=== PATIENT | female | born 1940 | race Two or more races ===

== ENCOUNTER 2022-04-27 19:55 | Inpatient (IN) | payer BC, MEDICAID ==
[~2022-04-27] VITALS: Ht 154.9 cm; Wt 56.7 kg
--- NOTE | 2022-04-27 20:50 | NUR ---
TO ER BED 11. [facility]IBFAM [facility] C/O SYNCOPE AT 8AM +KO +HEAD TRAUMA. PT STATES FEELING "HOT AND SWEATY" BEFORE SYNCOPAL EPISODE. PT IS ALERT AND ORIENTED. AMBULATORY WITH STEADY GAIT. CONNECTED TO MONITOR. AWAITING MD SOLIS
--- NOTE | 2022-04-27 21:35 | NUR ---
PT TAKEN TO CT VIA DIALLO
--- NOTE | 2022-04-27 22:26 | NUR ---
RAC #18G S/L BLOOD COLLECTED AND SENT TO LAB
--- NOTE | 2022-04-27 22:26 | NUR ---
PT SEEN BY DR. RADER
[2022-04-27 22:30] LABS: BASOPHILS % (AUTO) 0.4 % (0.0-2.0); EOSINOPHILS % (AUTO) 0.5 % (0.0-6.0); HEMATOCRIT 38 % (33-45); HEMOGLOBIN 12.8 g/dL (11.5-14.8); LYMPHOCYTES # (AUTO) 1.2 K/uL (0.8-4.8); LYMPHOCYTES % (AUTO) 19.4 % (20.0-44.0); MEAN CORPUSCULAR HGB CONC 34 g/dl (31.0-36.0); MEAN CORPUSCULAR VOLUME 89 fL (82-100); MONOCYTES # (AUTO) 0.9 K/uL (0.1-1.30); NEUTROPHILS # (AUTO) 4.1 K/uL (1.8-8.9); NEUTROPHILS % (AUTO) 65.7 % (43.0-81.0); PLATELET COUNT (AUTO) 314 K/uL (150-450); RED BLOOD CELL COUNT(AUTO) 4.24 MIL/uL (4.0-5.2); WHITE BLOOD COUNT (AUTO) 6.3 K/uL (4.3-11.0)
--- NOTE | 2022-04-27 22:38 | NUR ---
PT TAKEN TO CT VIA DIALLO
[2022-04-27 22:49] LABS: ALANINE AMINOTRANSFERASE 18 U/L (12-78); ALBUMIN 3.9 g/dL (3.4-5.0); ALKALINE PHOSPHATASE 120 U/L (46-116); ASPARTATE AMINOTRANSFERASE 15 U/L (15-37); BILIRUBIN,DIRECT 0.2 mg/dL (0.0-0.2); BILIRUBIN,TOTAL 0.7 mg/dL (0.2-1.0); CALCIUM, SERUM 8.9 mg/dL (8.5-10.1); CARBON DIOXIDE 27 mmol/L (21-32); CHLORIDE 91 mmol/L (98-107); CREATININE 0.6 mg/dL (0.6-1.3); POTASSIUM 3.8 mmol/L (3.5-5.1); SODIUM SERUM 125 mmol/L (136-145); TOTAL PROTEIN, SERUM 7.7 g/dL (6.4-8.2); UREA NITROGEN, BLOOD 7 mg/dL (7-18)
[2022-04-27 22:55] LABS: GLUCOSE 118 mg/dL (74-106)
[2022-04-27] MEDS ORDERED: MORPHINE SULFATE INJ 2 MG/ML DISP.SYRIN IV ONE (23:00)
[2022-04-27] MEDS ORDERED: ONDANSETRON HCL/PF 4 MG/2 ML VIAL IV ONE (23:00)
[2022-04-27] MEDS ORDERED: MORPHINE SULFATE INJ 2 MG/ML DISP.SYRIN ONE (23:04)
[2022-04-27] MEDS ORDERED: ONDANSETRON HCL/PF 4 MG/2 ML VIAL ONE (23:04)
--- NOTE | 2022-04-27 23:50 | NUR ---
COVID POSITIVE; DR. DIOR WASHINGTON AWARE. CONTACT DROPLET ISOLATION IN PLACE.
[2022-04-27 23:53] LABS: BILIRUBIN,URINE NEGATIVE (NEGATIVE); COLOR,URINE YELLOW (YELLOW); LEUKOCYTE ESTERASE ,URINE SMALL (NEGATIVE); NITRITE, URINE NEGATIVE (NEGATIVE); PH,URINE 6.5 (5.0-8.0); PROTEIN,URINE NEGATIVE (NEGATIVE); UGLUCOSE 100 MG/DL mg/dL (NEGATIVE); UROBILINOGEN,URINE 0.2 EU/dL (0.2)
[2022-04-27 23:57] LABS: BACTERIA,URINE Rare /HPF (None Seen); RBC,URINE 0-2 /HPF (0-2); SQUAMOUS EPITHELIAL CELL,UR Moderate /HPF (None Seen); WBC,URINE 0-2 /HPF (0-3)
--- NOTE | 2022-04-28 00:36 | NUR ---
[facility] PAGED
--- NOTE | 2022-04-28 01:10 | NUR ---
UPDATED GAVIN [phone] REGARDING PT'S ADMISSION & COVID VIA VOICE MESSAGE.
--- NOTE | 2022-04-28 01:43 | NUR ---
PT AMBULATORY TO RESTOOM WITH SUPERVISION. ADLS DONE.
--- NOTE | 2022-04-28 01:45 | NUR ---
ASSIGNED TO 103
[2022-04-28] MEDS ORDERED: AMLO-212 PO (02:07)
[2022-04-28] MEDS ORDERED: IRBE1TAB41 PO (02:10)
[2022-04-28] MEDS ORDERED: LEVO50TA8 PO (02:10)
--- NOTE | 2022-04-28 03:24 | NUR ---
REPORT GIVEN TO CHARLEY VARELA CHARGE NURSE FOR SHABBIR.
--- NOTE | 2022-04-28 03:25 | NUR ---
0325 Report received from ER nurse Chris for transfer of care with questions answered.
--- NOTE | 2022-04-28 03:35 | NUR ---
0335 Admitted from ER 82 year old female via gurney with Dx Syncope, Covid +. Patient awake alert oriented x4. Kinyarwanda speaking only. On room air with no complain of shortness of breath. No cough and denies chest pain when asked. Able to ambulate to bed with supervision. Connected to traffic monitor specialist. NSR in the 80s. No ectopies. Admission care done. Skin assessment done. No skin breakdown noted. Placed on strict isolation for covid. All necessary precaution observed. Oriented to room. Call light placed within reach and instructed patient to call for assistance.
--- NOTE | 2022-04-28 03:37 | NUR ---
PT TRANSFERRED TO [facility] VIA ACLS PROTOCOL. ALL BELONGINGS WITH PT. VSS.
--- NOTE | 2022-04-28 03:40 | NUR ---
8921 OMEGA Tesfaye notified of patient's admission to unit. Awaiting orders.
[2022-04-28 03:53] VITALS: BP 149/60
[2022-04-28] MEDS ORDERED: ZOLPIDEM TARTRATE 5 MG TABLET PO PRN (04:30)
[2022-04-28] MEDS ORDERED: ACETAMINOPHEN 325 MG TABLET PO PRN (04:30)
[2022-04-28] MEDS ORDERED: MAGNESIUM HYDROXIDE 30 ML UDC PO PRN (04:30)
[2022-04-28] MEDS ORDERED: ONDANSETRON HCL/PF 4 MG/2 ML VIAL IVP PRN (04:30)
[2022-04-28] MEDS: IV NS 0.9% 1,000 ML IV PRN ×2 (04:55→18:21)
[2022-04-28] MEDS: ENOXAPARIN SODIUM 40 MG/0.4 ML DISP.SYRIN SQ SCH (04:55)
--- NOTE | 2022-04-28 06:51 | NUR ---
RN NOTES PATIENT REMAINS STABLE NO SIGNIFICANT CHANGES IN HEALTH CONDITION. PATIENT A/O X4 ABLE TO MAKE NEEDS KNOWN. ALL DUE MEDS GIVEN ORDERED. WITH R AC # 20 PATENT CONNECTED TO CONTINUOS IVF PNS 75CC/HR. ON DROPLET ISOLATION FOR COVID DROPLET PRECAUTION DONE. ALL SAFETY MEASURES IN PLACE AT ALL TIMES. HOB ELEVATED. CALL LIGHT WITHIN REACH. WILL ENDORSED TO MORNING NURSE FOR SHABBIR
--- NOTE | 2022-04-28 07:10 | NUR ---
RN open note Patient is alert , oriented times 3 , ambulatory , urine and bowel continent , skin intact .Patient is in bed , on room air , breathing non labored no sighs of distress, RAC 18 g , IV access NS running at 75 ml/hr. Bed is at lowest position , bed side rails are up , call light within reach .
[2022-04-28 08:00] VITALS: BP 127/59
[2022-04-28] MEDS: LEVOTHYROXINE SODIUM 50 MCG TABLET PO SCH (09:08)
[2022-04-28] MEDS: AMLODIPINE BESYLATE 5 MG TABLET PO SCH (09:08)
[2022-04-28 09:39] LABS: POTASSIUM 3.5 mmol/L (3.5-5.1)
[2022-04-28 09:58] LABS: ALBUMIN 3.2 g/dL (3.4-5.0); BILIRUBIN,TOTAL 0.7 mg/dL (0.2-1.0); CALCIUM, SERUM 8.1 mg/dL (8.5-10.1); CREATININE 0.7 mg/dL (0.6-1.3); TOTAL PROTEIN, SERUM 6.5 g/dL (6.4-8.2)
[2022-04-28] MEDS: LOSARTAN POTASSIUM 50 MG TABLET PO SCH (10:42)
[2022-04-28] MEDS: HYDROCHLOROTHIAZIDE 25 MG TABLET PO SCH (10:43)
[2022-04-28 12:00] VITALS: BP 152/50
[2022-04-28 16:00] VITALS: BP 152/50
--- NOTE | 2022-04-28 18:32 | NUR ---
RN closing note Patient is alert , oriented times 3 , ambulatory , moderate assistance with ADLs, patient is in bed on room air , breathing non labored , no sighs of distress.Patient ambulates to the restroom today had 5 times of urination with clear yellow urine , one bowel movement soft brown stool. Patient has IV access of the RAC 18 g with NS running at 75 ml/hr, no open wounds .All meds were administered , all needs are met . Bed ios at lowest position , bed side rails are up , call light within reach.
--- NOTE | 2022-04-28 19:30 | NUR ---
CURTAIN DRIER OPENING NOTE RECEIVED PT IN BED, AWAKE. A/O X 4, MAORI SPEAKING ONLY. CURRENTLY ON RA, TOLERATING WELL. NO S/SX OF ACUTE DISTRESS NOTED AT THIS TIME. IV ACCESS NOTED IN RAC #18g, PATENT AND INTACT, INFUSING NS AT 75 CC/HR. KEPT HOB ELEVATED. ALL SAFETY MEASURES IN PLACE: BED LOCKED IN LOWEST POSITION, BED ALARM ON. CALL LIGHT WITHIN REACH. WILL CONTINUE TO MONITOR PT.
[2022-04-28 20:00] VITALS: BP 123/49
--- NOTE | 2022-04-28 22:30 | NUR ---
RN NOTE PT IS SLEEPING SOUNDLY. NO S/SX OF ACUTE DISTRESS, NO SOB. WILL CONTINUE TO MONITOR.
[2022-04-29] VITALS: BP 133/46
--- NOTE | 2022-04-29 01:20 | NUR ---
RN NOTE PT HAS A TEMP OF 100.6. PT SAID NO PAIN, SHE IS JUST FEELING COLD. GAVE TYLENOL PRN ORDERED. WILL CONTINUE TO MONITOR PT.
--- NOTE | 2022-04-29 02:25 | NUR ---
RN NOTE PT TEMP WENT DOWN TO 99.2, SLEEPING COMFORTABLY. NO SIGNS ACUTE DISTRESS NOTED. NO SOB. NO PAIN. WILL CONTINUE TO MONITOR CLOSELY
[2022-04-29 04:00] VITALS: BP 104/44
--- NOTE | 2022-04-29 05:53 | NUR ---
RN NOTE AM/PM CARE DONE. KEPT PT CLEAN AND DRY. TURNED AND REPOSITIONED.
--- NOTE | 2022-04-29 06:15 | NUR ---
SHRINK PIT SUPERVISOR CLOSING NOTE PT REMAINED STABLE THE WHOLE NIGHT. PT IS AFEBRILE. NO SOB, NO PAIN, NO ACUTE DISTRESS. WILL ENDORSE TO AM SHIFT NURSE FOR SHABBIR.
[2022-04-29 07:02] LABS: BASOPHILS % (AUTO) 0.4 % (0.0-2.0); HEMATOCRIT 34 % (33-45); HEMOGLOBIN 11.4 g/dL (11.5-14.8); LYMPHOCYTES # (AUTO) 0.9 K/uL (0.8-4.8); MEAN CORPUSCULAR HGB CONC 34 g/dl (31.0-36.0); MEAN CORPUSCULAR VOLUME 91 fL (82-100); MONOCYTES # (AUTO) 0.7 K/uL (0.1-1.30); NEUTROPHILS # (AUTO) 1.9 K/uL (1.8-8.9); NEUTROPHILS % (AUTO) 51.6 % (43.0-81.0); PLATELET COUNT (AUTO) 244 K/uL (150-450); RED BLOOD CELL COUNT(AUTO) 3.75 MIL/uL (4.0-5.2); WHITE BLOOD COUNT (AUTO) 3.7 K/uL (4.3-11.0)
[2022-04-29 07:14] LABS: CALCIUM, SERUM 8.2 mg/dL (8.5-10.1); CARBON DIOXIDE 28 mmol/L (21-32); CHLORIDE 99 mmol/L (98-107); CREATININE 0.6 mg/dL (0.6-1.3); GLUCOSE 89 mg/dL (74-106); PHOSPHORUS 3.8 mg/dL (2.5-4.9); SODIUM SERUM 131 mmol/L (136-145); UREA NITROGEN, BLOOD 11 mg/dL (7-18)
--- NOTE | 2022-04-29 07:33 | NUR ---
REGISTERED NURSE SUPERVISOR OPENING NOTE RECEIVED PT IN BED, ASLEEP. CURRENTLY ON RA, TOLERATING WELL. NO S/SX OF ACUTE DISTRESS NOTED AT THIS TIME. IV ACCESS NOTED IN RAC #18G, PATENT AND INTACT, INFUSING NS AT 75 CC/HR. KEPT HOB ELEVATED. ALL SAFETY MEASURES IN PLACE: BED LOCKED IN LOWEST POSITION, BED ALARM ON. CALL LIGHT WITHIN REACH. WILL CONTINUE PLAN OF CARE.
[2022-04-29 08:00] VITALS: BP 120/71
[2022-04-29] MEDS: IV NS 0.9% 1,000 ML IV PRN ×2 (08:00→22:59)
[2022-04-29 08:30] LABS: CHOLESTEROL 144 mg/dL (<200); HDL CHOLESTEROL 63 mg/dL (40-60); LDL 71 mg/dL (0-99); TRIGLYCERIDES 33 mg/dL (30-150)
[2022-04-29] MEDS: LOSARTAN POTASSIUM 50 MG TABLET PO SCH (09:22)
[2022-04-29] MEDS: LEVOTHYROXINE SODIUM 50 MCG TABLET PO SCH (09:22)
[2022-04-29] MEDS: AMLODIPINE BESYLATE 5 MG TABLET PO SCH (09:23)
[2022-04-29] MEDS: HYDROCHLOROTHIAZIDE 25 MG TABLET PO SCH (09:24)
[2022-04-29] MEDS: ENOXAPARIN SODIUM 40 MG/0.4 ML DISP.SYRIN SQ SCH (09:29)
[2022-04-29 11:28] LABS: EOSINOPHILS % (MANUAL) 2 % (0-4); LYMPHOCYTES % (MANUAL) 30 % (16-48); MONOCYTES % (MANUAL) 13 % (0-11.0); NEUTROPHILS % (MANUAL) 55 (42-76)
[2022-04-29 12:00] VITALS: BP 117/52
[2022-04-29 16:00] VITALS: BP 128/56
--- NOTE | 2022-04-29 19:01 | NUR ---
COMPLAINT CLERK CLOSING NOTE PT IN BED, AWAKE. A/OX4, CURRENTLY ON RA, TOLERATING WELL. NO S/SX OF ACUTE DISTRESS NOTED AT THIS TIME. IV ACCESS NOTED IN RAC #18G, PATENT AND INTACT, INFUSING NS AT 75 CC/HR. KEPT HOB ELEVATED. ALL SAFETY MEASURES IN PLACE: BED LOCKED IN LOWEST POSITION, BED ALARM ON. CALL LIGHT WITHIN REACH. WILL ENDORSE TO NEXT NURSE ON DUTY FOR CONTINUITY OF CARE.
--- NOTE | 2022-04-29 19:10 | NUR ---
METAL SPRAYER OPENING NOTE RECEIVED PT IN BED, AWAKE. A/O X 4, KYRGYZ SPEAKING ONLY. CURRENTLY ON RA, TOLERATING WELL. NO S/SX OF ACUTE DISTRESS NOTED AT THIS TIME. IV ACCESS NOTED IN RAC #18g, PATENT AND INTACT, INFUSING NS AT 75 CC/HR. KEPT HOB ELEVATED. ALL SAFETY MEASURES IN PLACE: BED LOCKED IN LOWEST POSITION, BED ALARM ON. CALL LIGHT WITHIN REACH. WILL CONTINUE TO MONITOR PT.
[2022-04-29 20:00] VITALS: BP 142/58
[2022-04-30] VITALS: BP 142/58
[2022-04-30 08:00] VITALS: BP 152/57
[2022-04-30] MEDS: LOSARTAN POTASSIUM 50 MG TABLET PO SCH (08:48)
[2022-04-30] MEDS: AMLODIPINE BESYLATE 5 MG TABLET PO SCH (08:48)
[2022-04-30] MEDS: LEVOTHYROXINE SODIUM 50 MCG TABLET PO SCH (08:48)
[2022-04-30 08:49] VITALS: BP 152/57
[2022-04-30] MEDS: HYDROCHLOROTHIAZIDE 25 MG TABLET PO SCH (08:49)
[2022-04-30] MEDS: ENOXAPARIN SODIUM 40 MG/0.4 ML DISP.SYRIN SQ SCH (08:49)
[2022-04-30 11:16] LABS: CALCIUM, SERUM 8.3 mg/dL (8.5-10.1); CREATININE 0.6 mg/dL (0.6-1.3); POTASSIUM 3.5 mmol/L (3.5-5.1)
[2022-04-30 11:20] LABS: ALBUMIN 3.1 g/dL (3.4-5.0); BILIRUBIN,TOTAL 0.4 mg/dL (0.2-1.0); TOTAL PROTEIN, SERUM 6.6 g/dL (6.4-8.2)
--- NOTE | 2022-04-30 13:45 | NUR ---
RN CLOSING NOTE PATIENT DISCHARGED HOME. ID BAND AND IV SITE REMOVED.
== END 2022-04-30 13:47 | disposition home or self-care (01) | DRG 422 ==
LOC: ER 20:02 → TELE1 04-28 01:55 → MEDSG1 04-30 01:21
PROVIDERS: ADMIT Internal Medicine; ATTEND Internal Medicine
DX: E86.0 Dehydration (principal); U07.1 COVID-19; S09.90XA Unspecified injury of head, initial encounter; E87.1 Hypo-osmolality and hyponatremia; E03.9 Hypothyroidism, unspecified; I10 Essential (primary) hypertension; Z20.822 Contact with and (suspected) exposure to COVID-19; W18.30XA Fall on same level, unspecified, initial encounter; Y92.000 Kitchen of unspecified non-institutional (private) residence as the place of occurrence of the external cause; R73.9 Hyperglycemia, unspecified; J98.8 Other specified respiratory disorders; R78.89 Finding of other specified substances, not normally found in blood
CPT/HCPCS: 36415; 70450-TC; 71045-TC; 72125-TC; 80048-TC; 80053-TC; 80061-TC; 80076-TC; 81001; 82533; 83735-TC; 84100-TC; 84439-TC; 84443-TC; 84484-TC; 84550-TC; 85025-TC; 85378-TC; 86140-TC; 87081-TC; 87086-TC; 93307-TC; C9803; G0378; J1650; J2270; J2405; J7030

== ENCOUNTER 2022-05-26 10:18 | Inpatient (IN) | payer MEDICAID ==
[~2022-05-26] VITALS: Ht 147.3 cm; Wt 58.5 kg
[~2022-05-26 10:18] MED LIST: AMLO-212 PO; IRBE1TAB41 PO; LEVO50TA8 PO
--- NOTE | 2022-05-26 10:48 | NUR ---
Patient came ini to the er c/o dizzziness, near syncopal episode. On room air, breathing evenly and unlabored. Connected to the cardiac monitoring and pulse ox. Blood drawned and sent to lab. Kept comfortable, will continue to monitor accordingly.
[2022-05-26 10:50] LABS: BASOPHILS % (AUTO) 0.4 % (0.0-2.0); EOSINOPHILS % (AUTO) 0.9 % (0.0-6.0); HEMATOCRIT 36 % (33-45); HEMOGLOBIN 12.3 g/dL (11.5-14.8); LYMPHOCYTES # (AUTO) 1.1 K/uL (0.8-4.8); LYMPHOCYTES % (AUTO) 19.6 % (20.0-44.0); MEAN CORPUSCULAR HGB CONC 34 g/dl (31.0-36.0); MEAN CORPUSCULAR VOLUME 90 fL (82-100); MONOCYTES # (AUTO) 0.6 K/uL (0.1-1.30); MONOCYTES % (AUTO) 11.2 % (2.0-12.0); NEUTROPHILS # (AUTO) 3.7 K/uL (1.8-8.9); NEUTROPHILS % (AUTO) 67.9 % (43.0-81.0); PLATELET COUNT (AUTO) 333 K/uL (150-450); WHITE BLOOD COUNT (AUTO) 5.4 K/uL (4.3-11.0)
[2022-05-26 11:08] LABS: ALBUMIN 3.7 g/dL (3.4-5.0); BILIRUBIN,DIRECT 0.2 mg/dL (0.0-0.2); BILIRUBIN,TOTAL 0.8 mg/dL (0.2-1.0); CALCIUM, SERUM 8.2 mg/dL (8.5-10.1); CREATININE 0.8 mg/dL (0.6-1.3); POTASSIUM 3.6 mmol/L (3.5-5.1); TOTAL PROTEIN, SERUM 7.2 g/dL (6.4-8.2)
--- NOTE | 2022-05-26 11:26 | NUR ---
CALLED DR. KEELY SAXENA [phone] CELL [phone]
--- NOTE | 2022-05-26 11:45 | NUR ---
covid swab collected and sent to lab.
[2022-05-26] MEDS ORDERED: IV NS 0.9% 1,000 ML IV ONE (12:00)
--- NOTE | 2022-05-26 12:43 | NUR ---
[facility] CALLED NAVIGATION TEACHER PAGED.
[2022-05-26 12:50] LABS: BILIRUBIN,URINE NEGATIVE (NEGATIVE); COLOR,URINE YELLOW (YELLOW); LEUKOCYTE ESTERASE ,URINE NEGATIVE (NEGATIVE); NITRITE, URINE NEGATIVE (NEGATIVE); PROTEIN,URINE NEGATIVE (NEGATIVE); UGLUCOSE 500 MG/DL mg/dL (NEGATIVE); UROBILINOGEN,URINE 0.2 EU/dL (0.2)
[2022-05-26 13:20] LABS: BACTERIA,URINE Few /HPF (None Seen); RBC,URINE 0-2 /HPF (0-2); SQUAMOUS EPITHELIAL CELL,UR Few /HPF (None Seen); WBC,URINE 0-2 /HPF (0-3)
--- NOTE | 2022-05-26 13:49 | NUR ---
report given to Elise SOLARES to continue care.
[2022-05-26] MEDS ORDERED: Z GUARD REMEDY 4 OZ OINT TP PRN (14:00)
[2022-05-26] MEDS ORDERED: MAG HYDROX/AL HYDROX/SIMETH 30 ML UDC PO PRN (14:00)
[2022-05-26] MEDS ORDERED: *INSULIN REGULAR(HUMULIN R)HUM 100 UNIT/ML VIAL SQ PRN (14:00)
[2022-05-26] MEDS ORDERED: ACETAMINOPHEN 325 MG TABLET PO PRN (14:00)
[2022-05-26] MEDS ORDERED: ONDANSETRON HCL/PF 4 MG/2 ML VIAL IVP PRN (14:00)
[2022-05-26] MEDS ORDERED: DEXTROSE 50%-WATER 50 ML DISP.SYRIN IV PRN (14:00)
[2022-05-26] MEDS ORDERED: INSULIN REGULAR, HUMAN 100 UNIT/ML 3 ML VIAL SQ PRN (14:00)
[2022-05-26] MEDS ORDERED: MAGNESIUM HYDROXIDE 30 ML UDC PO PRN (14:00)
--- NOTE | 2022-05-26 14:07 | NUR ---
wheeled patient via gurney accompanied by RN and emt in no distress, RN assigned at bedside to assume care.
--- NOTE | 2022-05-26 14:30 | NUR ---
HOME MANAGEMENT SUPERVISORBURR PICKER NOTE: RECEIVED PT. IN DI[facility]O FROM ER AT 1400. REPORT GIVEN BY GIFT SHOP MANAGER GENESIS TO HEATING FIXTURE TENDER RAFAELA. PT. IS A/OX4, AWAKE, INDONESIAN-SPEAKING. UTILIZED INDONESIAN-SPEAKING STAFF FOOD EXPEDITOR. NO COMPLAINTS OF PAIN AT THIS TIME. PT. ON RA. NO S/S OF RESPIRATORY DISTRESS. PT. ON TELE MONITOR THAT READS NSR @ 75 BPM. OTHER VS: T - 97.9 F; BP - 155/68; R - 18; 02 SAT - 100%. PT. VOIDING WELL AND AMBULATES INDEPENDENTLY. ADVISED PT. TO USE CALL LIGHT BEFORE GETTING OUT OF BED TO PREVENT FALL. PT. CONSTIPATED, LBM TODAY, SMALL AMOUNT. IV SITE ON R AC #18G, PATENT AND FLUSHING WELL, NO S/S OF INFILTRATION, SALINE LOCKED AT THIS TIME. PT. HAS SMALL KNEE ABRASION THAT IS DRY. PHOTO TAKEN. SKIN INTACT OTHERWISE. SAFETY MEASURES IN PLACE: BED IN LOWEST AND LOCKED POSITION, HOB ELEVATED, SIDE RAILS UP X3; BED ALARM ON, CALL LIGHT & BELONGINGS WITHIN EASY REACH. WILL CONTINUE TO MONITOR PT. FOR ANY CHANGES.
[2022-05-26] MEDS: IV NS 0.9% 1,000 ML IV PRN (15:12)
[2022-05-26] MEDS: BLOOD SUGAR DIAGNOSTIC 1 EACH STRIP VI SCH ×2 (18:52→21:44)
--- NOTE | 2022-05-26 19:00 | NUR ---
RN NOTE RECEIVED PATIENT IN BED, AAO X 4, KYRGYZ SPEAKING. IN NO ACUTE DISTRESS, BREATHING UNLABORED, SATURATION AT 95% ON ROOM AIR, SR ON THE MONITOR, HR IS 72. IV LINE AT RAC 18G PATENT AND FLUSHING WELL, NO S/S OF INFECTION OR INFILTRATION, WITH NS INFUSING AT 75 ML/HR. PATIENT IS CONTINENT AND AMBULATORY WITH SB ASSIST. SAFETY MEASURES IN PLACE, BED IS LOCKED AND AT LOWEST POSITION. CALL LIGHT WITHIN REACH OF PATIENT. WILL CONT TO MONITOR AND REASSESS FOR ANY CHANGES.
--- NOTE | 2022-05-26 19:20 | NUR ---
PARAEDUCATOR CLOSING NOTE: PT. REMAINS IN BED, AWAKE, A/OX4. DANISH-SPEAKING. UTILIZED DANISH-SPEAKING STAFF MAT MAKER. NO COMPLAINTS OF PAIN AT THIS TIME. PT. ON RA. BREATHING EVEN AND UNLABORED. PT. ON TELE MONITOR THAT READS NSR @ 74 BPM. PT. AMBULATES INDEPENDENTLY WITH STANDBY ASSIST. REINFORCED USE OF CALL LIGHT BEFORE GETTING OUT OF BED TO PREVENT FALL. IV SITE ON R AC #18G, PATENT AND FLUSHING WELL, NO S/S OF INFILTRATION, WITH NS RUNNING @ 75ML/HR. SAFETY MEASURES MAINTAINED: BED IN LOWEST AND LOCKED POSITION, HOB ELEVATED, SIDE RAILS UP X3; BED ALARM ON, CALL LIGHT & BELONGINGS WITHIN EASY REACH. WILL ENDORSE CONTINUITY OF CARE TO BAKER BISCUIT RN.
[2022-05-26 20:00] VITALS: BP 140/61
[2022-05-27] VITALS: BP 139/57
--- NOTE | 2022-05-27 02:05 | NUR ---
RN NOTE PATIENT ASLEEP, VS STABLE. SAFETY MEASURES IN PLACE. REPORT GIVEN TO ISABELLA SOLARES FOR CONTINUATION OF CARE.
--- NOTE | 2022-05-27 02:10 | NUR ---
REINSURANCE CLERK NOTE RECEIVED PATIENT IN BED, ASLEEP, EASILY AROUSED; A/O X4. PALAUAN SPEAKING. NOT IN ANY FORM OF RESPIRATORY DISTRESS. BREATHING EVENLY AND NONLABORED. ON ROOM AIR, TOLERATING WELL. ON TELEMETRY MONITORING WITH READING OF SR HR-73 BPM. WITH IV ACCESS ON RAC G#18; PATENT, INTACT AND FLUSHES WELL INFUSING WITH NS REGULATED @75 ML/HR. SAFETY MEASURES IMPLEMENTED: CALL LIGHT AND TABLE WITHIN REACH, SIDE RAILS UP X2, BED IN LOWEST LOCKED POSITION. WILL CONTINUE TO MONITOR
[2022-05-27 04:00] VITALS: BP 142/56
[2022-05-27] MEDS: IV NS 0.9% 1,000 ML IV PRN ×2 (05:13→20:24)
[2022-05-27 06:47] LABS: BASOPHILS % (AUTO) 0.4 % (0.0-2.0); HEMATOCRIT 34 % (33-45); HEMOGLOBIN 11.6 g/dL (11.5-14.8); LYMPHOCYTES # (AUTO) 1.2 K/uL (0.8-4.8); LYMPHOCYTES % (AUTO) 23.1 % (20.0-44.0); MEAN CORPUSCULAR HGB CONC 35 g/dl (31.0-36.0); MEAN CORPUSCULAR VOLUME 90 fL (82-100); MONOCYTES # (AUTO) 0.6 K/uL (0.1-1.30); MONOCYTES % (AUTO) 11.3 % (2.0-12.0); NEUTROPHILS # (AUTO) 3.2 K/uL (1.8-8.9); NEUTROPHILS % (AUTO) 63.2 % (43.0-81.0); PLATELET COUNT (AUTO) 298 K/uL (150-450); RED BLOOD CELL COUNT(AUTO) 3.78 MIL/uL (4.0-5.2)
--- NOTE | 2022-05-27 06:59 | NUR ---
PICK OUT HAND CLOSING NOTE PATIENT CURRENTLY RESTING IN BED; ASLEEP & EASY TO AROUSE; A/O X4. ABLE TO MAKE NEEDS KNOWN. DENIES ANY PAIN OR DISCOMFORT AT THIS TIME. CONTINUES ON ROOM AIR WITH NO S/SX OF RESPIRATORY DISTRESS. IV ACCESS ON RAC 18G INFUSING WITH NS 1L REGULATED @ 75ML/HR. SAFETY MEASURES IN PLACE. ALL NEEDS ANTICIPATED AND ATTENDED. ENDORSED TO MORNING SHIFT FOR SHABBIR.
[2022-05-27 07:18] LABS: CALCIUM, SERUM 7.9 mg/dL (8.5-10.1); CARBON DIOXIDE 27 mmol/L (21-32); CHLORIDE 98 mmol/L (98-107); CREATININE 0.5 mg/dL (0.6-1.3); GLUCOSE 89 mg/dL (74-106); MAGNESIUM 2.2 mg/dL (1.8-2.4); PHOSPHORUS 3.4 mg/dL (2.5-4.9); POTASSIUM 4.1 mmol/L (3.5-5.1); SODIUM SERUM 128 mmol/L (136-145); UREA NITROGEN, BLOOD 7 mg/dL (7-18)
--- NOTE | 2022-05-27 07:30 | NUR ---
RN OPENING NOTE PATIENT LAYING ON BED AWAKE AND ALERT A&OX4 MONGOLIAN SPEAKING. ALL VSS. SRPATIENT SATTING AT 97% ON ROOM AIR. DIET REGULAR. IV RAC #18G PATENT AND INTACT RUNNING NS 0.9% @75MLS/HR. ALL SAFETY FALL PRECAUTIONS IN PLACE BED LOCK ON BED IN LOWEST POSITION, BED ALARM ON, SIDE RAILS UP, CALL LIGHT WITHIN REACH. WILL CONTINUE TO MONITOR.
[2022-05-27] MEDS: BLOOD SUGAR DIAGNOSTIC 1 EACH STRIP VI SCH ×4 (07:51→22:11)
[2022-05-27 08:00] VITALS: BP 135/64
[2022-05-27] MEDS: LEVOTHYROXINE SODIUM 50 MCG TABLET PO SCH (09:11)
[2022-05-27] MEDS ORDERED: INSULIN REGULAR, HUMAN 100 UNIT/ML 3 ML VIAL SQ PRN (10:30)
[2022-05-27] MEDS ORDERED: DEXTROSE 50%-WATER 50 ML DISP.SYRIN IV PRN (10:30)
[2022-05-27 12:00] VITALS: BP 136/64
--- NOTE | 2022-05-27 12:23 | NUR ---
RN NOTE PATIENT'S BS 82 PATIENT WAS GIVEN SOME ORANGE JUICE AND LUNCH. WILL CONTINUE TO MONITOR.
[2022-05-27 16:00] VITALS: BP 126/59
--- NOTE | 2022-05-27 19:09 | NUR ---
RN NOTE ALL CARE ENDORSED TO FISHER DIVING NURSE. PATIENT STABLE ALL QUESTIONS ANSWERED.
--- NOTE | 2022-05-27 19:10 | NUR ---
RN opening notes Pt is sitting in bed comfortably. Pt is alert and orientedX4. On room air. No SOB. no S/S of distress noted. Pt speaks Faroese and able to make needs known. IV site at RAC# 18 is clean, intact and infusing well NS@ 75 ml/hr. Tele monitor showed Sr hr at 70. Safety precautions is maintained. bed at low position, brakes locked, side rails upX2, hob elevated, bed alarm is on and call light is within reach. Will continue to monitor.
[2022-05-27 20:00] VITALS: BP_SYST 146; BP_SYST 148; BP_SYST 160; BP_DIAS 68; BP_DIAS 72
[2022-05-27] MEDS ORDERED: *INSULIN REGULAR(HUMULIN R)HUM 100 UNIT/ML VIAL SQ PRN (22:00)
--- NOTE | 2022-05-27 22:14 | NUR ---
RN notes Pt's BS HS is 126. Held coverage per level ordered. No S/s of distress noted. Snacks is given earlier. Will continue to monitor.
[2022-05-28] VITALS: BP 128/77
[2022-05-28 04:00] VITALS: BP 142/72
[2022-05-28 06:26] LABS: BASOPHILS % (AUTO) 0.7 % (0.0-2.0); EOSINOPHILS % (AUTO) 3.5 % (0.0-6.0); HEMATOCRIT 36 % (33-45); HEMOGLOBIN 12.3 g/dL (11.5-14.8); LYMPHOCYTES # (AUTO) 1.3 K/uL (0.8-4.8); LYMPHOCYTES % (AUTO) 23.9 % (20.0-44.0); MEAN CORPUSCULAR HGB CONC 34 g/dl (31.0-36.0); MEAN CORPUSCULAR VOLUME 91 fL (82-100); MONOCYTES # (AUTO) 0.5 K/uL (0.1-1.30); NEUTROPHILS # (AUTO) 3.3 K/uL (1.8-8.9); NEUTROPHILS % (AUTO) 61.9 % (43.0-81.0); PLATELET COUNT (AUTO) 280 K/uL (150-450); RED BLOOD CELL COUNT(AUTO) 3.93 MIL/uL (4.0-5.2); WHITE BLOOD COUNT (AUTO) 5.3 K/uL (4.3-11.0)
--- NOTE | 2022-05-28 06:49 | NUR ---
RN closing notes Pt is resting in bed comfortably. Pt is alert and orientedX4. On room air. No SOB. no S/S of distress noted. VS is stable. Routine meds were given as ordered. IV site at RAC# 18 is clean, intact and infusing well NS@ 75 ml/hr. Tele monitor showed Sr hr at 64. Kept Pt clean, dry and comfortable. Safety precautions is maintained. bed at low position, brakes locked, side rails upX2, hob elevated, bed alarm is on and call light is within reach. Will endorse to am nurse for SHABBIR.
[2022-05-28 07:05] LABS: CALCIUM, SERUM 8.2 mg/dL (8.5-10.1); CARBON DIOXIDE 26 mmol/L (21-32); CHLORIDE 99 mmol/L (98-107); CREATININE 0.6 mg/dL (0.6-1.3); GLUCOSE 90 mg/dL (74-106); MAGNESIUM 2.1 mg/dL (1.8-2.4); PHOSPHORUS 3.3 mg/dL (2.5-4.9); POTASSIUM 4.1 mmol/L (3.5-5.1); SODIUM SERUM 131 mmol/L (136-145); UREA NITROGEN, BLOOD 9 mg/dL (7-18)
[2022-05-28 07:09] LABS: THYROID STIMULATING HORMONE 1.702 uIU/mL (0.358-3.74)
--- NOTE | 2022-05-28 07:30 | NUR ---
COOK HELPER OPENING NOTES RECEIVED PATIENT ON BED, AWAKE AND A/O X4. ON ROOM AIR TOLERATING WELL. NO SOB NOT. NOT IN DISTRESS. WITH NO COMPLAINTS OF PAIN OR DISCOMFORT AT THIS TIME. WITH IV ACCESS AT THE RIGHT AC G18 WITH IVF NS AT 75ML/HR INFUSING WELL. ON TELE MONITOR CURRENTLY READING SINUS RHYTHM AT 64BPM. SAFETY MEASURES IN PLACED. CALL LIGHT WITHIN REACH. BED ON LOWEST LOCKED POSITION, SIDE RAILS UP X2. WILL CONTINUE TO MONITOR.
[2022-05-28 08:00] VITALS: BP 136/53
[2022-05-28] MEDS: BLOOD SUGAR DIAGNOSTIC 1 EACH STRIP VI SCH ×2 (08:04→12:35)
[2022-05-28] MEDS: LEVOTHYROXINE SODIUM 50 MCG TABLET PO SCH (08:35)
--- NOTE | 2022-05-28 09:28 | NUR ---
hospital television rental clerk note ambulated around her room , able to go to br , no c\o dizziness
[2022-05-28 12:00] VITALS: BP 154/55
--- NOTE | 2022-05-28 13:39 | NUR ---
MOVIE EXTRA NOTES PATIENT WAS SEEN BY DR. BUCKLEY AND ORDERED PATIENT FOR DISCHARGE TO HOME. DISCHARGE INSTRUCTION AND EDUCATION PROVIDED TO PATIENT AND EXPLAINED MEDICATIONS AND PRESCRIPTIONS. PATIENT VERBALIZED UNDERSTANDING. DISCHARGE FORM AND BELONGINGS LIST SIGNED BY PATIENT. ALL BELONGINGS ACCOUNTED FOR. NAME WRIST BAND AND IV LINE REMOVED. ACCOMPANIED PATIENT TO THE LOBBY VIA WHEELCHAIR WITH SON TAMY IN STABLE CONDITION AND LEFT VIA PRIVATE CAR. CHARGE NURSE AND MD ARE AWARE OF THE DISCHARGE.
== END 2022-05-28 13:39 | disposition home or self-care (01) | DRG 422 ==
LOC: ER 10:29 → TELE1 13:15
PROVIDERS: ADMIT Internal Medicine; ATTEND Internal Medicine
DX: E86.1 Hypovolemia (principal); E86.0 Dehydration; E87.1 Hypo-osmolality and hyponatremia; Z20.822 Contact with and (suspected) exposure to COVID-19; Z86.16 Personal history of COVID-19; I10 Essential (primary) hypertension; Z79.890 Hormone replacement therapy; Z79.899 Other long term (current) drug therapy; E03.9 Hypothyroidism, unspecified; T50.905A Adverse effect of unspecified drugs, medicaments and biological substances, initial encounter; Y92.9 Unspecified place or not applicable
CPT/HCPCS: 36415; 70450-TC; 71045-TC; 80048-TC; 80076-TC; 81001; 82962-TC; 83735-TC; 84100-TC; 84439-TC; 84443-TC; 84484-TC; 85025-TC; 87081-TC; 97116-TC; 97530-TC; C9803; G0378; J1815; J7030

== ENCOUNTER 2024-05-24 23:57 | Emergency (ER) | payer MEDICAID ==
[~2024-05-24] VITALS: Ht 165.1 cm; Wt 72.6 kg
[~2024-05-24 23:57] MED LIST changes: -IRBE1TAB41 PO
[2024-05-25 01:04] LABS: BASOPHILS % (AUTO) 0.7 % (0.0-2.0); EOSINOPHILS # (AUTO) 0.2 K/uL (0.0-0.7); EOSINOPHILS % (AUTO) 3.4 % (0.0-6.0); HEMATOCRIT 39 % (33-45); HEMOGLOBIN 13.2 g/dL (11.5-14.8); LYMPHOCYTES # (AUTO) 2.1 K/uL (0.8-4.8); LYMPHOCYTES % (AUTO) 32.8 % (20.0-44.0); MEAN CORPUSCULAR HEMOGLOBIN 31 PG (26.0-33.0); MEAN CORPUSCULAR HGB CONC 34 g/dl (31.0-36.0); MEAN CORPUSCULAR VOLUME 89 fL (82-100); MONOCYTES # (AUTO) 0.6 K/uL (0.1-1.30); MONOCYTES % (AUTO) 9.6 % (2.0-12.0); NEUTROPHILS # (AUTO) 3.4 K/uL (1.8-8.9); NEUTROPHILS % (AUTO) 53.5 % (43.0-81.0); PLATELET COUNT (AUTO) 311 K/uL (150-450); RED BLOOD CELL COUNT(AUTO) 4.32 MIL/uL (4.0-5.2); RED CELL DISTRIBUTION WIDTH 13.5 % (11.5-15.0); WHITE BLOOD COUNT (AUTO) 6.3 K/uL (4.3-11.0)
[2024-05-25 01:13] LABS: CALCIUM, SERUM 8.9 mg/dL (8.5-10.1); CARBON DIOXIDE 26 mmol/L (21-32); CHLORIDE 95 mmol/L (98-107); CREATININE 0.7 mg/dL (0.6-1.3); GLUCOSE 118 mg/dL (74-106); POTASSIUM 3.7 mmol/L (3.5-5.1); SODIUM SERUM 132 mmol/L (136-145); UREA NITROGEN, BLOOD 10 mg/dL (7-18)
[2024-05-25] MEDS: IV NS 0.9% 1,000 ML BAG IV ONE (01:28)
[2024-05-25 02:30] VITALS: BP 138/60; TEMP 98.8; O2SAT 97
== END 2024-05-25 03:02 | disposition home or self-care (01) ==
LOC: ER 05-25 00:02
DX: R00.2 Palpitations (principal); I10 Essential (primary) hypertension; E87.1 Hypo-osmolality and hyponatremia; Z79.899 Other long term (current) drug therapy
CPT/HCPCS: 99285; 96360; 71045; 93005; 85025; 80048; 36415; J7030

== ENCOUNTER 2025-02-24 07:40 | Inpatient (IN) | payer MEDICAID ==
[~2025-02-24] VITALS: Ht 147.3 cm; Wt 57.6 kg
[2025-02-24] MEDS ORDERED: CEFTRIAXONE 1GM BAG (ER ONLY) 50 ML IV ONE (08:29)
[2025-02-24] MEDS: IV NS 0.9% 500 ML BAG IV ONE (08:34)
[2025-02-24] MEDS: CEFTRIAXONE 1GM BAG (ER ONLY) 50 ML IV ONE (08:35)
[2025-02-24 08:36] LABS: BASOPHILS % (AUTO) 0.4 % (0.0-2.0); EOSINOPHILS # (AUTO) 0.1 K/uL (0.0-0.7); EOSINOPHILS % (AUTO) 2.6 % (0.0-6.0); HEMATOCRIT 44 % (33-45); HEMOGLOBIN 14.5 g/dL (11.5-14.8); LYMPHOCYTES # (AUTO) 1.2 K/uL (0.8-4.8); MEAN CORPUSCULAR HEMOGLOBIN 29 PG (26.0-33.0); MEAN CORPUSCULAR HGB CONC 33 g/dl (31.0-36.0); MEAN CORPUSCULAR VOLUME 86 fL (82-100); MONOCYTES # (AUTO) 0.3 K/uL (0.1-1.30); MONOCYTES % (AUTO) 8.2 % (2.0-12.0); NEUTROPHILS # (AUTO) 2.5 K/uL (1.8-8.9); NEUTROPHILS % (AUTO) 59.8 % (43.0-81.0); PLATELET COUNT (AUTO) 323 K/uL (150-450); RED BLOOD CELL COUNT(AUTO) 5.05 MIL/uL (4.0-5.2); RED CELL DISTRIBUTION WIDTH 14.4 % (11.5-15.0); WHITE BLOOD COUNT (AUTO) 4.1 K/uL (4.3-11.0)
[2025-02-24 08:46] LABS: CARBON DIOXIDE 27 mmol/L (21-32); CHLORIDE 94 mmol/L (98-107); CREATININE 0.5 mg/dL (0.6-1.3); GLUCOSE 116 mg/dL (74-106); POTASSIUM 4.2 mmol/L (3.5-5.1); SODIUM SERUM 129 mmol/L (136-145); UREA NITROGEN, BLOOD 10 mg/dL (7-18)
[2025-02-24 08:50] LABS: INR 1.04 (0.91-1.10); PARTIAL THROMBOPLASTIN TIME 24.4 SEC (24.3-34.3)
[2025-02-24 08:52] LABS: ALANINE AMINOTRANSFERASE 16 U/L (12-78); ALBUMIN 3.9 g/dL (3.4-5.0); ALKALINE PHOSPHATASE 145 U/L (46-116); ASPARTATE AMINOTRANSFERASE 16 U/L (15-37); BILIRUBIN,DIRECT 0.2 mg/dL (0.0-0.2); BILIRUBIN,TOTAL 0.8 mg/dL (0.2-1.0); TOTAL PROTEIN, SERUM 7.6 g/dL (6.4-8.2)
[2025-02-24 08:55] LABS: LACTIC ACID 1.1 mmol/L (0.4-2.0)
[2025-02-24] MEDS: AZITHROMYCIN 500 MG in IV D5W 250 ML IV ONE (09:14)
[2025-02-24] MEDS ORDERED: FLUT10.62 IH (09:48)
[2025-02-24] MEDS ORDERED: ALBU8.5H8 IH (09:48)
[2025-02-24] MEDS ORDERED: CARV6.252 PO (09:48)
[2025-02-24] MEDS ORDERED: LOSA1TAB36 PO (09:48)
[2025-02-24] MEDS ORDERED: ALBUTEROL FS 2.5 MG/0.5 ML VIAL.NEB NEB PRN (10:00)
[2025-02-24] MEDS ORDERED: ACETAMINOPHEN 325 MG TABLET PO PRN (10:00)
[2025-02-24] MEDS ORDERED: MAGNESIUM HYDROXIDE 30 ML UDC PO PRN (10:00)
[2025-02-24] MEDS ORDERED: Z GUARD REMEDY 4 OZ OINT TP PRN (10:00)
[2025-02-24] MEDS ORDERED: ONDANSETRON HCL/PF 4 MG/2 ML VIAL IVP PRN (10:00)
[2025-02-24] MEDS ORDERED: MAG HYDROX/AL HYDROX/SIMETH 30 ML UDC PO PRN (10:00)
[2025-02-24 10:19] LABS: APPEARANCE,URINE CLEAR (CLEAR); BILIRUBIN,URINE NEGATIVE (NEGATIVE); BLOOD, URINE NEGATIVE Ery/uL (NEGATIVE); COLOR,URINE YELLOW (YELLOW); KETONES,URINE NEGATIVE (NEGATIVE); LEUKOCYTE ESTERASE ,URINE NEGATIVE (NEGATIVE); NITRITE, URINE NEGATIVE (NEGATIVE); PROTEIN,URINE NEGATIVE (NEGATIVE); UGLUCOSE NEGATIVE (NEGATIVE); UROBILINOGEN,URINE 0.2 EU/dL (0.2)
[2025-02-24 10:30] VITALS: BP 161/66; TEMP 98.1; O2SAT 99
[2025-02-24] MEDS ORDERED: methylPREDNISolone SOD SUCC 125 MG/2ML VIAL IV SCH (10:30)
[2025-02-24 11:06] VITALS: BP 161/66; TEMP 98.1; O2SAT 99
[2025-02-24] MEDS: ENOXAPARIN SODIUM 40 MG/0.4 ML DISP.SYRIN SQ SCH (11:16)
[2025-02-24] MEDS: CARVEDILOL 6.25 MG TABLET PO SCH (11:17)
[2025-02-24] MEDS: methylPREDNISolone SOD SUCC 40 MG/ML VIAL IV SCH (11:17)
[2025-02-24 16:00] VITALS: BP_SYST 117; BP_SYST 145; BP_DIAS 61; BP_DIAS 96; TEMP 97.9; TEMP 98.6; O2SAT 92; O2SAT 96
[2025-02-24 17:54] VITALS: O2SAT 96
[2025-02-24] MEDS: BUDESONIDE RESPULE INH 0.5 MG/2 ML AMPUL.NEB HHN SCH (17:54)
[2025-02-24 18:06] VITALS: O2SAT 99
[2025-02-24 20:00] VITALS: BP 165/70; TEMP 97.7; O2SAT 95
[2025-02-25] VITALS (14 sets, daily range): BP systolic 149–172; BP diastolic 60–68; TEMP 97.5–97.7; O2SAT 95–99
[2025-02-25 06:37] LABS: HEMATOCRIT 39 % (33-45); HEMOGLOBIN 13.2 g/dL (11.5-14.8); LYMPHOCYTES # (AUTO) 0.9 K/uL (0.8-4.8); LYMPHOCYTES % (AUTO) 9.9 % (20.0-44.0); MEAN CORPUSCULAR HEMOGLOBIN 29 PG (26.0-33.0); MEAN CORPUSCULAR HGB CONC 34 g/dl (31.0-36.0); MEAN CORPUSCULAR VOLUME 86 fL (82-100); MONOCYTES # (AUTO) 0.2 K/uL (0.1-1.30); MONOCYTES % (AUTO) 2.7 % (2.0-12.0); NEUTROPHILS # (AUTO) 7.8 K/uL (1.8-8.9); NEUTROPHILS % (AUTO) 87.4 % (43.0-81.0); PLATELET COUNT (AUTO) 300 K/uL (150-450); RED BLOOD CELL COUNT(AUTO) 4.51 MIL/uL (4.0-5.2); RED CELL DISTRIBUTION WIDTH 14.4 % (11.5-15.0); WHITE BLOOD COUNT (AUTO) 8.9 K/uL (4.3-11.0)
[2025-02-25 07:41] LABS: CALCIUM, SERUM 9.3 mg/dL (8.5-10.1); CREATININE 0.7 mg/dL (0.6-1.3); MAGNESIUM 2.1 mg/dL (1.8-2.4)
[2025-02-25] MEDS: CEFTRIAXONE 1 G in IV D5W 50 ML IV SCH (08:52)
[2025-02-25] MEDS: LEVOTHYROXINE SODIUM 50 MCG TABLET PO SCH (08:53)
[2025-02-25] MEDS: ALBUTEROL FS 2.5 MG/0.5 ML VIAL.NEB NEB SCH (10:00)
[2025-02-25] MEDS: IPRATROPIUM NEB FS 0.5 MG/2.5 ML AMPUL.NEB NEB SCH (11:37)
[2025-02-26] VITALS (9 sets, daily range): BP systolic 151–158; BP diastolic 71–78; TEMP 98.1; O2SAT 95–99
[2025-02-26 06:53] LABS: CALCIUM, SERUM 9.1 mg/dL (8.5-10.1); CREATININE 0.5 mg/dL (0.6-1.3); MAGNESIUM 2.5 mg/dL (1.8-2.4); PHOSPHORUS 4.2 mg/dL (2.5-4.9); POTASSIUM 4.4 mmol/L (3.5-5.1)
[2025-02-26 07:29] LABS: THYROID STIMULATING HORMONE 0.15 uIU/mL (0.358-3.74); URIC ACID 2.6 mg/dL (2.6-7.2)
[2025-02-26] MEDS ORDERED: PRED20TA PO (10:11)
[2025-02-26] MEDS ORDERED: AZIT250T13 PO (10:11)
== END 2025-02-26 16:00 | disposition home or self-care (01) | DRG 139 ==
LOC: ER 07:52 → TELE 09:53 → MED 12:42
PROVIDERS: ADMIT Internal Medicine; ATTEND Internal Medicine
DX: J15.9 Unspecified bacterial pneumonia (principal); E22.2 Syndrome of inappropriate secretion of antidiuretic hormone; J45.901 Unspecified asthma with (acute) exacerbation; I10 Essential (primary) hypertension; E11.9 Type 2 diabetes mellitus without complications; E86.1 Hypovolemia; E03.9 Hypothyroidism, unspecified; Z87.01 Personal history of pneumonia (recurrent); J98.11 Atelectasis; Z20.822 Contact with and (suspected) exposure to COVID-19
CPT/HCPCS: 36415; 70220-TC; 71045-TC; 80048-TC; 80076-TC; 83605-TC; 83735-TC; 83935-TC; 84100-TC; 84300-TC; 84443-TC; 84484-TC; 84550-TC; 85025-TC; 85730-TC; 87040-TC; 87086-TC; 94760-TC; 94799-TC; A4223; G0378; J0696; J1650; J2919; J7040; J7050; J7060